=== PATIENT | male | born 1995 | race Two or more races ===

== ENCOUNTER 2024-09-13 13:39 | Emergency (ER) | payer OTHER ==
[~2024-09-13] VITALS: Ht 180.3 cm; Wt 117.9 kg
[2024-09-13] MEDS ORDERED: KETOROLAC TROMETHAMINE 30 MG VIAL IM STA (14:33)
[2024-09-13] MEDS ORDERED: CEFTRIAXONE SODIUM 1,000 MG VIAL IM STA (14:33)
[2024-09-13] MEDS ORDERED: AMOX-CLAV 875-1 EACH PO ×2 (14:35→14:49)
== END 2024-09-13 15:31 | disposition home or self-care (01) ==
LOC: ER 13:50
DX: K04.7 Periapical abscess without sinus (principal)

== ENCOUNTER 2025-01-12 18:28 | Emergency (ER) | payer OTHER ==
[~2025-01-12] VITALS: Ht 180.3 cm; Wt 113.4 kg
[~2025-01-12 18:28] MED LIST: AMOX-CLAV 875-1 EACH PO
[2025-01-12 18:38] VITALS: BP 147/86; O2SAT 98
[2025-01-12] MEDS ORDERED: INSULIN REGULAR, HUMAN 1,000 UNIT/10 ML UNITS IV ONE ×2 (19:15→21:15)
[2025-01-12] MEDS ORDERED: 0.9 % SODIUM CHLORIDE 1,000 ML IV ONE (19:15)
[2025-01-12 21:14] LABS: BASO % 0.5 % (0.1-1.2); EOS # 0.14 (0.04-0.54); EOS % 1.4 % (0.7-7.0); LYMPH # 3.18 (1.18-3.74); LYMPH % 32.7 % (19.3-53.1); MEAN PLATELET VOLUME 11.10 fl (9.4-12.4); MONO # 0.75 (0.24-0.82); MONO % 7.7 % (4.7-12.5); NEUT # 5.57 (1.56-6.13); NEUT % 57.4 % (34.0-71.1); RED CELL DISTRIBUTION WIDTH 11.8 % (11.6-14.4)
[2025-01-12 21:39] LABS: ALT/SGPT 82.0 U/L (12-78); AST/SGOT 37.0 U/L (15-37); BILIRUBIN TOTAL 0.33 mg/dL (0.3-1.2); BUN CREA RATIO 14.0 (7.0-25.0); CREATININE SERUM 0.94 mg/dL (0.70-1.30); GFR 93.6; GLOBULINA 4.0 G/DL (2.4-3.5); OSMOLALITY SERUM 284.0 MOSM/KG (275-295)
[2025-01-12 21:51] LABS: GLUCOSE FASTING 316.0 mg/dL (65-100)
[2025-01-12] MEDS ORDERED: METFORMIN HCL500 MG PO (22:59)
[2025-01-12] MEDS ORDERED: KETOROLAC TROMETHAMINE 30 MG VIAL ONE (23:14)
[2025-01-12] MEDS ORDERED: KETOROLAC TROMETHAMINE 30 MG VIAL IV ONE (23:15)
== END 2025-01-12 23:26 | disposition home or self-care (01) ==
LOC: ER 18:28
PROVIDERS: General Practice
DX: R73.9 Hyperglycemia, unspecified (principal)

== ENCOUNTER 2025-01-21 10:41 | Emergency (ER) | payer OTHER ==
[~2025-01-21] VITALS: Ht 180.3 cm; Wt 117.9 kg
[~2025-01-21 10:41] MED LIST changes: +METFORMIN HCL500 MG PO
[2025-01-21] MEDS ORDERED: INSULIN GLARGINE,HUM.REC.ANLOG 1,000 UNITS/10 ML UNITS SUBCUTANEO ONE ×2 (11:30→13:30)
[2025-01-21] MEDS ORDERED: INSULIN REGULAR, HUMAN 1,000 UNIT/10 ML UNITS SUBCUTANEO ONE (11:30)
[2025-01-21] MEDS ORDERED: CEFTRIAXONE SODIUM 1,000 MG VIAL IV ONE (11:30)
[2025-01-21] MEDS ORDERED: 0.9 % SODIUM CHLORIDE 1,000 ML IV ONE (11:30)
[2025-01-21] MEDS ORDERED: NIFEDIPINE 10 MG CAPSULE PO ONE ×2 (11:30→11:47)
[2025-01-21] MEDS ORDERED: CEFTRIAXONE SODIUM 1,000 MG VIAL ONE (11:48)
[2025-01-21 12:38] LABS: BASO % 0.3 % (0.1-1.2); EOS # 0.14 (0.04-0.54); EOS % 1.5 % (0.7-7.0); LYMPH # 2.47 (1.18-3.74); LYMPH % 27.1 % (19.3-53.1); MEAN PLATELET VOLUME 11.10 fl (9.4-12.4); MONO # 0.69 (0.24-0.82); MONO % 7.6 % (4.7-12.5); NEUT # 5.78 (1.56-6.13); NEUT % 63.3 % (34.0-71.1); RED CELL DISTRIBUTION WIDTH 11.6 % (11.6-14.4)
[2025-01-21 12:49] LABS: ALT/SGPT 41.0 U/L (12-78); AST/SGOT 28.0 U/L (15-37); BILIRUBIN TOTAL 0.44 mg/dL (0.3-1.2); BUN CREA RATIO 16.0 (7.0-25.0); CREATININE SERUM 0.83 mg/dL (0.70-1.30); GFR 108.06; GLOBULINA 3.6 G/DL (2.4-3.5); GLUCOSE FASTING 287.0 mg/dL (65-100); OSMOLALITY SERUM 288.0 MOSM/KG (275-295)
[2025-01-21] MEDS ORDERED: INSULIN REGULAR, HUMAN 1,000 UNIT/10 ML UNITS IV ONE (13:30)
[2025-01-21] MEDS ORDERED: AMOX1TAB5 PO (14:16)
[2025-01-21] MEDS ORDERED: PEPCID AC20 MG PO (14:16)
[2025-01-21] MEDS ORDERED: COZAAR25 MG PO (14:19)
== END 2025-01-21 14:22 | disposition home or self-care (01) ==
LOC: ER 10:42
PROVIDERS: General Practice
DX: E88.810 Metabolic syndrome (principal); K05.10 Chronic gingivitis, plaque induced; I10 Essential (primary) hypertension; E11.9 Type 2 diabetes mellitus without complications; Z79.84 Long term (current) use of oral hypoglycemic drugs